=== PATIENT | female | born 1965 | race Caucasian/White ===

== ENCOUNTER → 2017-03-03 | Outpatient (CLI) | payer MEDICARE | LOC: RAD 13:23 | DX: M54.2 Cervicalgia (principal); M54.5 Low back pain; R07.89 Other chest pain | CPT/HCPCS: 71020; 72050; 72072; 72110 ==

== ENCOUNTER 2020-12-19 17:33 | Emergency (ER) | payer OTHER ==
[~2020-12-19 17:33] MED LIST: BACTROBAN OINT22 GM EXT; CORTIZONE-1057 GM TP; KEFLEX CAP 500500 MG PO; PREDNISONE 50 M50 MG PO; PYRIDIUM200 MG PO; VIBRAMYCIN100 MG PO; ZOFRAN ODT 4 MG4 MG PO
== END 2020-12-19 19:53 | disposition home or self-care (01) ==
LOC: ER1 17:33
DX: S93.402A Sprain of unspecified ligament of left ankle, initial encounter (principal); S93.602A Unspecified sprain of left foot, initial encounter; I10 Essential (primary) hypertension; F17.210 Nicotine dependence, cigarettes, uncomplicated; W00.0XXA Fall on same level due to ice and snow, initial encounter; Y92.009 Unspecified place in unspecified non-institutional (private) residence as the place of occurrence of the external cause
CPT/HCPCS: 73610; 73630; 99283

== ENCOUNTER 2021-05-23 13:44 | Emergency (ER) | payer OTHER ==
[2021-05-23 14:26] LABS: HEMOGLOBIN 15.6 gm/dl (12.3-15.3); RED BLOOD COUNT 4.8 M/UL (4.00-5.10); WHITE BLOOD COUNT 15.5 K/UL (4.5-11.0)
[2021-05-23 14:48] LABS: BUN/CREATININE RATIO 20 (0-10)
[2021-05-23] MEDS ORDERED: AUGMENTIN 875-1 EACH PO (16:26)
== END 2021-05-23 18:00 | disposition home or self-care (01) ==
LOC: ER1 13:44
DX: K57.30 Diverticulosis of large intestine without perforation or abscess without bleeding (principal); K62.5 Hemorrhage of anus and rectum; F17.210 Nicotine dependence, cigarettes, uncomplicated; B19.20 Unspecified viral hepatitis C without hepatic coma
CPT/HCPCS: 80053; 81001; 83690; 85025; 85610; 86850; 86900; 86901; 96374; 96375; 99284; J0295; J2270; J2405; Q9967

== ENCOUNTER 2022-07-19 18:31 | Emergency (ER) | payer OTHER ==
[~2022-07-19 18:31] MED LIST changes: +AUGMENTIN 875-1 EACH PO; +CEFUROXIME500 MG PO
[2022-07-19 19:57] LABS: HEMOGLOBIN 14.6 gm/dl (12.3-15.3); RED BLOOD COUNT 4.63 M/UL (4.00-5.10); WHITE BLOOD COUNT 7.9 K/UL (4.5-11.0)
[2022-07-19 20:30] LABS: BUN/CREATININE RATIO 20 (0-10)
[2022-07-20] MEDS ORDERED: MACROBID 100 M100 MG PO (00:58)
== END 2022-07-20 01:05 | disposition home or self-care (01) ==
LOC: ER1 18:31
PROVIDERS: Physician Assistant Medical
DX: R31.9 Hematuria, unspecified (principal); R00.2 Palpitations; F17.200 Nicotine dependence, unspecified, uncomplicated; Z90.49 Acquired absence of other specified parts of digestive tract; Z90.710 Acquired absence of both cervix and uterus
CPT/HCPCS: 80053; 81001; 82550; 82553; 84484; 85025; 93005; 96374; 99284; J1885